=== PATIENT | female | born 1970 | race Caucasian/White ===

== ENCOUNTER → 2022-05-01 18:21 | Outpatient (REF) | payer BC, SELFPAY | LOC: CLAB 18:21 | PROVIDERS: ATTENDING PHYSICIAN Otolaryngology Facial Plastic Surgery; FAMILY PHYSICIAN Family Medicine | DX: J32.9 Chronic sinusitis, unspecified (principal) | CPT/HCPCS: 88304; 88311; 88312 ==

== ENCOUNTER → 2023-04-02 06:50 | Outpatient (REF) | payer BC, SELFPAY | LOC: HWWDC 06:50 | PROVIDERS: ATTENDING PHYSICIAN Family Medicine | DX: Z12.31 Encounter for screening mammogram for malignant neoplasm of breast (principal) | CPT/HCPCS: 77063; 77067 ==

== ENCOUNTER → 2023-04-16 09:23 | Outpatient (REF) | payer BC, SELFPAY | LOC: WDC 09:23 | PROVIDERS: ATTENDING PHYSICIAN Family Medicine | DX: R92.8 Other abnormal and inconclusive findings on diagnostic imaging of breast (principal) | CPT/HCPCS: 77065 ==

== ENCOUNTER → 2023-07-16 13:00 | Outpatient (REF) | payer BC, SELFPAY ==
[2023-07-16 13:48] LABS: % Basophils 0.4 % (0-2); % Immature Granulocytes 0.2 % (0-0.5); % Lymphocytes 28.2 % (20.5-51.1); % Monocytes 9.8 % (1.7-9.3); % Neutrophils 61.4 % (42.2-75.2); Absolute Lymphocytes 1.4 10^3/uL (1.2-3.4); Absolute Monocytes 0.5 10^3/uL (0.1-0.6); Absolute Neutrophils 3.1 10^3/uL (1.4-6.5); Hematocrit 41.2 % (37.0-47.0); Hemoglobin 13.7 g/dL (12.0-16.0); Mean Corp Hgb Conc. 33.3 g/dL (33.0-37.0); Mean Corpuscular Hgb 28.4 pg (27.0-31.0); Mean Corpuscular Volume 85.5 fL (81.0-99.0); Mean Platelet Volume 11.2 fL (7.4-10.4); Nucleated Red Blood Cells % 0 %; Platelet Count 201 10^3/uL (130-400); Red Blood Cell Count 4.82 10^6/uL (4.20-5.40); Red Cell Dist. Width 13.9 % (11.5-14.5); White Blood Cell Count 5.1 10^3/uL (4.8-10.8)
[2023-07-16 14:18] LABS: ALT (SGPT) 17 U/L (0-35); AST (SGOT) 23 U/L (14-36); Albumin 4.2 g/dl (3.5-5.0); Alkaline Phosphatase 57 U/L (38-126); Blood Urea Nitrogen 17 mg/dl (7-17); Calcium 9.6 mg/dl (8.4-10.2); Carbon Dioxide 27 mmol/L (22-30); Chloride 107 mmol/L (98-107); Glucose 88 mg/dl (70-99); HDL Cholesterol 67 mg/dl; LDL Cholesterol, Calculated 131 mg/dl; Potassium 4.6 mmol/L (3.5-5.1); Sodium 141 mmol/L (135-145); Total Bilirubin 0.5 mg/dl (0.2-1.3); Total Cholesterol 217 mg/dl (50-199); Total Protein 6.7 g/dl (6.3-8.2); Triglyceride 96 mg/dl (10-149); Very Low Density Lipoprotein 19 mg/dl (0-30); eGFR > 60.00
[2023-07-16 14:29] LABS: Glycohemoglobin (HgbA1c) 5.5 % (4.0-5.6)
[2023-07-16 14:30] LABS: Free T3 3.19 pg/ml (2.77-5.27); Free T4 0.95 ng/dl (0.78-2.19)
[2023-07-16 14:44] LABS: TSH 4.94 uIU/ml (0.47-4.68)
== END ==
LOC: REG 13:00
PROVIDERS: ATTENDING PHYSICIAN Internal Medicine; FAMILY PHYSICIAN Internal Medicine; REFERRING PHYSICIAN Family Medicine
DX: R73.03 Prediabetes (principal); E03.9 Hypothyroidism, unspecified; R29.898 Other symptoms and signs involving the musculoskeletal system; E78.00 Pure hypercholesterolemia, unspecified; E78.49 Other hyperlipidemia; E03.8 Other specified hypothyroidism; M06.4 Inflammatory polyarthropathy; Z51.81 Encounter for therapeutic drug level monitoring
CPT/HCPCS: 36415; 80053; 80061; 83036; 84439; 84443; 84481; 85025

== ENCOUNTER → 2024-04-01 11:07 | Outpatient (REF) | payer BC, SELFPAY ==
[2024-04-01 12:20] LABS: % Basophils 0.6 % (0-2); % Immature Granulocytes 0.2 % (0-0.5); % Lymphocytes 32.5 % (20.5-51.1); % Monocytes 8.7 % (1.7-9.3); Absolute Lymphocytes 1.7 10^3/uL (1.2-3.4); Absolute Monocytes 0.5 10^3/uL (0.1-0.6); Absolute Neutrophils 3.1 10^3/uL (1.4-6.5); Hemoglobin 14.8 g/dL (12.0-16.0); Mean Corp Hgb Conc. 32.9 g/dL (33.0-37.0); Mean Corpuscular Hgb 28.9 pg (27.0-31.0); Mean Corpuscular Volume 87.9 fL (81.0-99.0); Mean Platelet Volume 11.2 fL (7.4-10.4); Nucleated Red Blood Cells % 0 %; Platelet Count 237 10^3/uL (130-400); Red Blood Cell Count 5.12 10^6/uL (4.20-5.40); Red Cell Dist. Width 13.2 % (11.5-14.5); White Blood Cell Count 5.3 10^3/uL (4.8-10.8)
[2024-04-01 12:49] LABS: ALT (SGPT) 32 U/L (0-35); AST (SGOT) 33 U/L (14-36); Albumin 4.5 g/dl (3.5-5.0); Alkaline Phosphatase 61 U/L (38-126); Blood Urea Nitrogen 23 mg/dl (7-17); Calcium 9.8 mg/dl (8.4-10.2); Carbon Dioxide 29 mmol/L (22-30); Chloride 103 mmol/L (98-107); Glucose 80 mg/dl (70-99); HDL Cholesterol 66 mg/dl; LDL Cholesterol, Calculated 126 mg/dl; Magnesium 2.4 mg/dl (1.6-2.3); Potassium 4.7 mmol/L (3.5-5.1); Sodium 139 mmol/L (135-145); Total Bilirubin 0.6 mg/dl (0.2-1.3); Total Cholesterol 209 mg/dl (50-199); Total Protein 7.2 g/dl (6.3-8.2); Triglyceride 89 mg/dl (10-149); Uric Acid 5.8 mg/dl (2.5-6.2); Very Low Density Lipoprotein 17 mg/dl (0-30); eGFR > 60.00
[2024-04-01 12:57] LABS: Free T4 0.99 ng/dl (0.78-2.19)
[2024-04-01 13:05] LABS: TSH 2.97 uIU/ml (0.47-4.68)
[2024-04-01 13:24] LABS: Vitamin B12 573 pg/ml (239-931)
[2024-04-01 14:35] LABS: Glycohemoglobin (HgbA1c) 5.3 % (4.0-5.6)
== END ==
LOC: REG 11:07
PROVIDERS: ATTENDING PHYSICIAN Internal Medicine; FAMILY PHYSICIAN Family Medicine
DX: E78.00 Pure hypercholesterolemia, unspecified (principal); Z79.899 Other long term (current) drug therapy; L83 Acanthosis nigricans; R73.03 Prediabetes; M54.50 Low back pain, unspecified; R41.3 Other amnesia; R20.0 Anesthesia of skin
CPT/HCPCS: 36415; 80053; 80061; 82607; 83036; 83735; 84439; 84443; 84550; 85025

== ENCOUNTER → 2024-08-26 11:01 | Outpatient (REF) | payer BC, SELFPAY | LOC: WDC 11:01 | PROVIDERS: ATTENDING PHYSICIAN Family Medicine | DX: Z12.31 Encounter for screening mammogram for malignant neoplasm of breast (principal) | CPT/HCPCS: 77063; 77067 ==

== ENCOUNTER → 2024-12-15 12:03 | Outpatient (REF) | payer BC, SELFPAY ==
[2024-12-15 13:55] LABS: Hematocrit 44.6 % (37.0-47.0); Hemoglobin 13.9 g/dL (12.0-16.0); Mean Corp Hgb Conc. 31.2 g/dL (33.0-37.0); Mean Corpuscular Volume 90.7 fL (81.0-99.0); Nucleated Red Blood Cells % 0 %; Platelet Count 194 10^3/uL (130-400); Red Cell Dist. Width 13.0 % (11.5-14.5)
[2024-12-15 14:23] LABS: C-Reactive Protein < 5.00 mg/L (0.0-10.00)
[2024-12-15 14:24] LABS: ALT (SGPT) 22 U/L (0-35); AST (SGOT) 23 U/L (14-36); Albumin 4.3 g/dl (3.5-5.0); Alkaline Phosphatase 64 U/L (38-126); Blood Urea Nitrogen 13 mg/dl (7-17); Calcium 9.6 mg/dl (8.4-10.2); Carbon Dioxide 30 mmol/L (22-30); Chloride 105 mmol/L (98-107); Glucose 82 mg/dl (70-99); Potassium 4.9 mmol/L (3.5-5.1); Sodium 136 mmol/L (135-145); Total Protein 7.0 g/dl (6.3-8.2); eGFR > 60.00
== END ==
LOC: REG 12:03
PROVIDERS: ATTENDING PHYSICIAN Internal Medicine; FAMILY PHYSICIAN Family Medicine
DX: K55.9 Vascular disorder of intestine, unspecified (principal); K52.9 Noninfective gastroenteritis and colitis, unspecified; D62 Acute posthemorrhagic anemia; K92.2 Gastrointestinal hemorrhage, unspecified; M06.4 Inflammatory polyarthropathy; M25.50 Pain in unspecified joint; Z51.81 Encounter for therapeutic drug level monitoring
CPT/HCPCS: 36415; 80053; 85025; 85652; 86140